=== PATIENT | female | born 1995 | race African-American/Black ===

== ENCOUNTER 2018-05-05 21:26 | Emergency (ER) | payer OTHER ==
[~2018-05-05] VITALS: Ht 167.6 cm; Wt 90.7 kg
[~2018-05-05 21:26] MED LIST: ONDANSETRON HCL4 M2 PO; PHENERGAN 25 MG25 M1 PO; PRENATAL TABLE1 EAC3 PO; TRINATE TABLET1 TAB PO; ZOFRAN ODT4 MG PO
[2018-05-05 22:04] LABS: URINE BILIRUBIN NEGATIVE (Negative); URINE BLOOD NEGATIVE (Negative); URINE CLARITY CLEAR; URINE COLOR YELLOW; URINE GLUCOSE-RANDOM* NEGATIVE (Negative); URINE KETONES NEGATIVE (Negative); URINE NITRITE-REFLEX NEGATIVE (Negative); URINE PROTEIN (DIPSTICK) NEGATIVE (Negative); URINE SPECIFIC GRAVITY <= 1.005 (1.005-1.035); URINE UROBILINOGEN 0.2 E.U./dl (0.2-1.0)
[2018-05-05 22:08] LABS: URINE LEUKOCYTES-REFLEX TRACE (Negative)
[2018-05-05 22:18] LABS: ABSOLUTE NEUTROPHILS 8.4 thou/uL (1.4-8.2); BASOPHILS 0.5 % (0.0-2.0); EOSINOPHILS 1.8 % (0.0-3.0); HEMATOCRIT 35.4 % (37.0-47.0); HEMOGLOBIN 11.5 gm/dL (12.0-15.0); MCHC 32.4 g/dL (28.0-37.0); MCV 80.2 fL (80.0-100.0); MONOCYTES 6.6 % (1.0-8.0); PLATELET COUNT 395 thou/uL (150-400); POLYS 55.1 % (36.0-66.0); RBC 4.42 mil/uL (4.20-5.00); RDW 14.7 % (10.5-14.5); WBC 15.3 thou/uL (4.0-11.0)
[2018-05-05 22:26] LABS: CALCIUM 8.8 mg/dL (8.5-10.1); CREATININE 0.8 mg/dL (0.6-1.0); POTASSIUM 3.8 mmol/L (3.5-5.1)
[2018-05-05 22:32] LABS: ALBUMIN 3.4 g/dL (3.4-5.0); TOTAL BILIRUBIN 0.3 mg/dL (<0.1-1.0); TOTAL PROTEIN 7.9 g/dL (6.4-8.2)
[2018-05-05] MEDS ORDERED: IBUPROFEN 400400 M2 PO (23:29)
[2018-05-05] MEDS ORDERED: TYLENOL EXTRA500 MG PO (23:29)
[2018-05-05 23:53] VITALS: BP 124/69
== END 2018-05-05 23:54 | disposition home or self-care (01) ==
LOC: ER 21:26
PROVIDERS: Student in an Organized Health Care Education/Training Program
DX: G89.18 Other acute postprocedural pain (principal); Z90.81 Acquired absence of spleen; J45.909 Unspecified asthma, uncomplicated